=== PATIENT | female | born 1960 | race Caucasian/White ===

== ENCOUNTER 2019-09-19 14:24 | Emergency (ER) | payer MEDICAID ==
[~2019-09-19] VITALS: Ht 177.8 cm; Wt 88.4 kg
[2019-09-19] MEDS ORDERED: ONDANSETRON PF 4 MG/2 ML VIAL. IVP ONE (15:15)
[2019-09-19] MEDS ORDERED: KETOROLAC 15 MG/ML VIAL. IVP ONE (15:15)
[2019-09-19] MEDS ORDERED: FAMOTIDINE 20 MG/2 ML VIAL IVP ONE ×2 (15:15)
[2019-09-19] MEDS ORDERED: IV NORMAL SALINE 1,000ML 1,000 ML IV ONE (15:15)
[2019-09-19 15:25] LABS: BASO # 0.1 x10^3/uL (0.0-0.2); BASO % 1 % (0-3); EOS # 0.2 x10^3/uL (0.0-0.7); EOS % 2 % (0-3); HEMATOCRIT 46.8 % (36.0-47.0); HEMOGLOBIN 16.1 g/dL (12.0-15.5); LYMPH # 3.2 x10^3/uL (1.0-4.8); LYMPH % 41 % (24-48); MEAN CORPUSCULAR HEMOGLOBIN 32 pg (25-35); MEAN CORPUSCULAR HGB CONC 34 g/dL (31-37); MEAN CORPUSCULAR VOLUME 95 fL (79-100); MONO # 0.6 x10^3/uL (0.0-1.1); MONO % 7 % (0-9); NEUT # 3.8 x10^3uL (1.8-7.7); NEUT % 49 % (31-73); PLATELET COUNT 278 x10^3/uL (140-400); RED BLOOD COUNT 4.95 x10^6/uL (3.50-5.40); RED CELL DISTRIBUTION WIDTH 12.8 % (11.5-14.5); WHITE BLOOD COUNT 7.8 x10^3/uL (4.0-11.0)
[2019-09-19 15:28] LABS: CALCIUM 9.6 mg/dL (8.5-10.1); GFR 56.6; POTASSIUM 3.9 mmol/L (3.5-5.1)
[2019-09-19 15:36] LABS: ALBUMIN 4.2 g/dL (3.4-5.0); ALBUMIN/GLOBULIN RATIO 1.2 (1.0-1.7); TOTAL BILIRUBIN 0.7 mg/dL (0.2-1.0); TOTAL PROTEIN 7.8 g/dL (6.4-8.2)
[2019-09-19] MEDS ORDERED: CONTRAST GIVEN. MC PRN (17:00)
[2019-09-19] MEDS ORDERED: IOHEXOL 300 MG/ML 75 ML VIAL. IV ONE (17:00)
[2019-09-19 17:38] LABS: BILIRUBIN,URINE NEG (NEG); CLARITY,URINE HAZY; COLOR,URINE YELLOW; GLUCOSE,URINE NEG (NEG)
[2019-09-19 17:39] LABS: BACTERIA,URINE MOD /HPF (0-FEW); NITRITE,URINE NEG (NEG); SQUAMOUS EPITHELIAL CELL,UR MOD /LPF; UROBILINOGEN,URINE 0.2 mg/dL (0.2 mg/dL)
--- NOTE | 2019-09-19 17:46 | RAD ---
CT chest abdomen and pelvis with contrast: History: Epigastric pain Axial helical images of the chest abdomen and pelvis were obtained after the administration of 100 cc IV Isovue-370 contrast. Comparison: none CT OF THE CHEST WITH IV CONTRAST: There is no mediastinal lymphadenopathy or hematoma. Lymphadenopathy: no Thoracic aorta: normal Lungs and pleural margins: clear Impression: No acute findings. End Impression CT OF THE ABDOMEN AND PELVIS WITH IV CONTRAST: The appendix is normal. The gallbladder has been removed. Liver: Unremarkable Spleen: Unremarkable Pancreas: Unremarkable Adrenal Glands: Unremarkable Kidneys: Unremarkable Evaluation of stomach and bowel is limited without oral contrast. Lymphadenopathy: Multiple small lymph nodes in the izabella hepatis. No abnormally enlarged lymph nodes. Free fluid: no. Free air: no. The bladder is mostly collapsed. Impression: No acute findings. End impression PQRS Compliance Statement: One or more of the following individualized dose reduction techniques were utilized for this examination: 1. Automated exposure control 2. Adjustment of the mA and/or kV according to patient size 3. Use of iterative reconstruction technique Electronically signed by: Simone Vargas III, MD (09/19/2019 5:43 PM) [id number]
[2019-09-19] MEDS ORDERED: HYOS0.1265 SL (18:02)
[2019-09-19] MEDS ORDERED: FAMO-63 PO (18:02)
[2019-09-19] MEDS ORDERED: ONDA4TAB12 PO (18:02)
--- NOTE | 2019-09-19 18:02 | PHYS DOC ---
Past History Past Medical History: Bipolar Past Surgical History: Cholecystectomy, Additional Past Surgical Histo: carpal tunnel,left hand,colon surgery Smoking: Cigarettes Additional Smoking Information: 1/2 ppd Alcohol Use: None Drug Use: Marijuana Social History Narrative: recent marijuana "edibles" General Adult EDM: Chief Complaint: NAUSEA/VOMITING/DIARRHEA HPI: HPI: 59 year old female presents with 4 day history of upper abdominal pain with associated N/V/D. Denies known sick contacts. Reports associated subjective fever and chills and headache. Denies trauma. Denies known exposure to COVID- 19. Review of Systems: Review of Systems: Constitutional: Reports subjective fever and chills Eyes: Denies change in visual acuity, redness, or eye pain HENT: Denies nasal congestion or sore throat Respiratory: Denies cough or shortness of breath Cardiovascular: Denies chest pain or palpitations GI: Reports abdominal pain, nausea, vomiting, and diarrhea : Denies dysuria or hematuria Musculoskeletal: Denies back pain or joint pain Integument: Denies rash or skin lesions Neurologic: Reports headache; denies focal weakness or sensory changes Complete systems were reviewed and found to be within normal limits, except as documented in this note. Current Medications: Current Meds: Current Medications Medications (Trade) Dose Ordered Sig/Mahin Start Time Stop Time Status Last Admin Dose Admin Famotidine (Pepcid Vial) 20 mg 1X ONCE 09/19/19 15:15 09/19/19 15:16 DC 09/19/19 16:08 20 MG Info (Do NOT chart on this entry -- for MONITORING) 1 each PRN DAILY PRN 09/19/19 17:00 09/21/19 16:59 Iohexol (Omnipaque 300 Mg/ml) 75 ml 1X ONCE 09/19/19 17:00 09/19/19 17:01 DC Ketorolac Tromethamine (Toradol 15mg Vial) 15 mg 1X ONCE 09/19/19 15:15 09/19/19 15:16 DC 09/19/19 16:08 15 MG Ondansetron HCl (Zofran) 4 mg 1X ONCE 09/19/19 15:15 09/19/19 15:16 DC 09/19/19 16:08 4 MG Sodium Chloride 1,000 ml @ 1,000 mls/hr 1X ONCE 09/19/19 15:15 09/19/19 16:14 DC 09/19/19 16:07 1,000 MLS/HR Allergies: Allergies: Allergies Coded Allergies Type Severity Reaction Last Updated Verified No Known Drug Allergies 09/19/19 No Physical Exam: PE: Constitutional: Well developed, well nourished, no acute distress, non-toxic appearance HENT: Normocephalic, atraumatic Eyes: PERRL, EOMI, conjunctiva normal, no discharge Neck: Normal range of motion, no tenderness, supple, no meningeal signs Lungs & Thorax: Equal chest rise and fall, no respiratory distress Abdomen: Soft, epigastric tenderness, no guarding Skin: Warm, dry, no erythema, no rash Back: No tenderness, no CVA tenderness Extremities: No tenderness, ROM intact, no edema Neurologic: Alert and oriented X 3, motor and sensory functions intact, no focal deficits noted Psychologic: Affect normal, judgement normal Current Patient Data: Labs: Laboratory Tests Test 09/19/19 14:53 09/19/19 17:02 White Blood Count 7.8 x10^3/uL (4.0-11.0) Red Blood Count 4.95 x10^6/uL (3.50-5.40) Hemoglobin 16.1 g/dL (12.0-15.5) H Hematocrit 46.8 % (36.0-47.0) Mean Corpuscular Volume 95 fL (79-100) Mean Corpuscular Hemoglobin 32 pg (25-35) Mean Corpuscular Hemoglobin Concent 34 g/dL (31-37) Red Cell Distribution Width 12.8 % (11.5-14.5) Platelet Count 278 x10^3/uL (140-400) Neutrophils (%) (Auto) 49 % (31-73) Lymphocytes (%) (Auto) 41 % (24-48) Monocytes (%) (Auto) 7 % (0-9) Eosinophils (%) (Auto) 2 % (0-3) Basophils (%) (Auto) 1 % (0-3) Neutrophils # (Auto) 3.8 x10^3uL (1.8-7.7) Lymphocytes # (Auto) 3.2 x10^3/uL (1.0-4.8) Monocytes # (Auto) 0.6 x10^3/uL (0.0-1.1) Eosinophils # (Auto) 0.2 x10^3/uL (0.0-0.7) Basophils # (Auto) 0.1 x10^3/uL (0.0-0.2) Prothrombin Time 9.5 SEC (9.4-11.4) Prothrombin Time INR 0.9 (0.9-1.1) Activated Partial Thromboplast Time 26 SEC (23-33) D-Dimer (Sandy) 0.34 mg/L (0.00-0.50) Sodium Level 140 mmol/L (136-145) Potassium Level 3.9 mmol/L (3.5-5.1) Chloride Level 103 mmol/L (98-107) Carbon Dioxide Level 23 mmol/L (21-32) Anion Gap 14 (6-14) Blood Urea Nitrogen 15 mg/dL (7-20) Creatinine 1.0 mg/dL (0.6-1.0) Estimated GFR (Cockcroft-Gault) 56.6 BUN/Creatinine Ratio 15 (6-20) Glucose Level 97 mg/dL (70-99) Calcium Level 9.6 mg/dL (8.5-10.1) Magnesium Level 2.0 mg/dL (1.8-2.4) Total Bilirubin 0.7 mg/dL (0.2-1.0) Aspartate Amino Transferase (AST) 22 U/L (15-37) Alanine Aminotransferase (ALT) 43 U/L (14-59) Alkaline Phosphatase 101 U/L (46-116) Lactate Dehydrogenase 186 U/L (81-234) Total Protein 7.8 g/dL (6.4-8.2) Albumin 4.2 g/dL (3.4-5.0) Albumin/Globulin Ratio 1.2 (1.0-1.7) Lipase 209 U/L (73-393) Urine Collection Type Unknown Urine Color Yellow Urine Clarity Hazy Urine pH 5.0 Urine Specific Clarkson 1.025 Urine Protein Neg (NEG-TRACE) Urine Glucose (UA) Neg mg/dL (NEG) Urine Ketones (Stick) Trace mg/dL (NEG) Urine Blood Neg (NEG) Urine Nitrite Neg (NEG) Urine Bilirubin Neg (NEG) Urine Urobilinogen Dipstick 0.2 mg/dL (0.2 mg/dL) Urine Leukocyte Esterase Neg (NEG) Urine RBC 1-2 /HPF (0-2) Urine WBC 1-4 /HPF (0-4) Urine Squamous Epithelial Cells Mod /LPF Urine Bacteria Mod /HPF (0-FEW) Urine Mucus Marked /LPF Vital Signs: Vital Signs Date Time Temp Pulse Resp B/P (MAP) Pulse Ox O2 Delivery O2 Flow Rate FiO2 09/19/19 17:26 66 20 117/67 (84) 98 Room Air 09/19/19 14:28 98.2 EKG: EKG: [] Radiology/Procedures: Radiology/Procedures: PROCEDURE: CT CHEST ABD PELVIS W/CONTRAST CT chest abdomen and pelvis with contrast: History: Epigastric pain Axial helical images of the chest abdomen and pelvis were obtained after the administration of 100 cc IV Isovue-370 contrast. Comparison: none CT OF THE CHEST WITH IV CONTRAST: There is no mediastinal lymphadenopathy or hematoma. Lymphadenopathy: no Thoracic aorta: normal Lungs and pleural margins: clear Impression: No acute findings. End Impression CT OF THE ABDOMEN AND PELVIS WITH IV CONTRAST: The appendix is normal. The gallbladder has been removed. Liver: Unremarkable Spleen: Unremarkable Pancreas: Unremarkable Adrenal Glands: Unremarkable Kidneys: Unremarkable Evaluation of stomach and bowel is limited without oral contrast. Lymphadenopathy: Multiple small lymph nodes in the izabella hepatis. No abnormally enlarged lymph nodes. Free fluid: no. Free air: no. The bladder is mostly collapsed. Impression: No acute findings. End impression PQRS Compliance Statement: One or more of the following individualized dose reduction techniques were utilized for this examination: 1. Automated exposure control 2. Adjustment of the mA and/or kV according to patient size 3. Use of iterative reconstruction technique Electronically signed by: Simone Vargas III, MD (09/19/2019 5:43 PM) [id number] Course & Med Decision Making: Course & Med Decision Making Pertinent Labs and Imaging studies reviewed. (See chart for details) Patient presents with 4 day history of epigastric abdominal discomfort with associated N/V/D, subjective fever/chills, and headache. Denies known sick contacts. Denies known exposure to COVID-19. Cannot fully exclude COVID-19. COVID precautions utilized and testing pending. Labs obtained and posted to chart. CT chest/abd/pelvis without acute process. Patient stable for discharge home with outpatient follow-up with PCP. Discussed findings and plan with patient, who acknowledges understanding and agreement. COVID-19 CRITERIA: The patient was evaluated during the global COVID-19 pandemic, and that diagnosis was suspected/considered upon their initial present ation. Their evaluation, treatment and testing was consistent with current guidelines for patients who present with complaints or symptoms that may be related to COVID-19. Jyotsna Disclaimer: Dragon Disclaimer: This electronic medical record was generated, in whole or in part, using a voice recognition dictation system. Departure Departure: Impression: Primary Impression: Epigastric abdominal pain Additional Impressions: Headache Qualified Codes: R51 - Headache Nausea vomiting and diarrhea Suspected 2019 novel coronavirus infection Disposition: HOME/RESIDENCE PRIOR TO ADM Condition: STABLE Referrals: [facility] (PCP) CRISTIAN KINGSTON MD Patient Instructions: Abdominal Pain (Nonspecific), Clear Liquid Diet, [id number], Diarrhea, [id number], Diet for Diarrhea, Adult, Headache, FAQs, Nausea and Vomiting, [id number] Additional Instructions: You have been tested for or diagnosed with COVID-19. It is an infection caused by a new type of coronavirus. COVID-19 will cause cold-like or mild flu symptoms in most. It can cause more severe symptoms like problems breathing in some. There is no treatment for COVID-19. The body will clear the infection over time. Self-care will help to ease discomfort. Steps to Take: Self-Care Rest as needed. Healthy habits may help you feel better. Steps include: Choose healthy foods including fruits and vegetables. Drink water throughout the day. Get plenty of sleep each night. If you smoke, try to quit. It may ease breathing. Avoid alcohol. Keep Others Healthy The virus can spread to others. Droplets are released every time you sneeze or cough. The droplets can get into the mouth, nose, or eyes of people near you and lead to infection. To lower the chances of spreading COVID-19 to others: Stay at home until your doctor has said it is safe to leave. If you tested positive this will mean staying isolated until both of the following are true: At least 7 days have passed since the start of illness. You are free of fever for at least 72 hours without the use of medicine. During this time: - Avoid public areas, events, or transportation. Do not return to work or school until your doctor has said it is safe to do so. - Call ahead if you need to go to a medical center. Let them know you may have COVID-19. It will help them guide you where to go. They may also ask you to wear a facemask when you come to the office. - If you call for emergency medical services, let them know you may have COVID- 19. While at home: - Try to avoid close contact with others. Stay about 6 feet away. - If possible, spend most of your time in a separate room from others. - Use a face mask if you will be in close contact with others such as sharing a room or vehicle. - Have someone wipe down common surfaces in the home. Use household inspecting and testing lead hand every day on areas like doorknobs, counters, or sinks. - Cough or sneeze into a tissue. Throw the tissue away right after use. If a tissue is not available, cough or sneeze into your elbow. - Wash your hands often. Wash them after sneezing or coughing. Use soap and water and wash for at least 20 seconds. Alcohol based hand spot cleaner can be used if soap and water is not available. - Do not prepare food for others. Avoid sharing personal items like forks, spoons, or toothbrushes. - Avoid close contact with pets while you are sick. There is no evidence of the virus passing to pets. This is a safety step until more is known about this virus. Isolation can be frustrating. Social interaction can help. Keep in touch with friends and family through phone and tech options. You can still interact with others in your home, just keep a safe distance of about 6 feet. Follow-up: Your doctors office will check in with you to see if there are any changes in your health. You may be asked to keep track of symptoms to share with them. They will also let you know when you are clear to be in public again. Problems to Look Out For: Contact your doctor if your recovery is not going as you expect. Get emergency care if you have problems such as: - Trouble breathing - Nonstop chest pain or pressure - Changes in awareness, confusion, or problems waking - Lips or face have bluish color - Worsening of symptoms If you think you have an emergency, call for emergency medical services right away. As taken from [facility] Ondansetron (ONDANSETRON ODT) 4 Mg Tab.rapdis 1 TAB PO PRN Q6-8HRS PRN for NAUSEA, #16 TAB Prov: ADAMA GARCIA DO 09/19/19 Hyoscyamine Sulfate (LEVSIN-SL) 0.125 Mg Tab.subl 1 TAB SL Q4-6HRS PRN for pain, #14 TAB 0 Refills Prov: ADAMA GARCIA DO 09/19/19 Famotidine (PEPCID) 20 Mg Tablet 1 TAB PO BID for Gastritis for 5 Days, #10 TAB Prov: ADAMA GARCIA DO 09/19/19 Justification of Admission: Justification of Admission: Justification of Admission Dx: N/A COVID-19 Assessment COVID-19 Patient Risks: Age 65 or older: No Sign of co-morbidity: Yes Exp to person + for COVID: No Exp to PUI: No Travel from affected area: No Lower respiratory symptoms: No Fever: Yes (subjective) PPE Use: Full PPE with N95 mask or PAPR: Yes ADAMA GARCIA DO Sep 19, 2019 18:02
[2019-09-19 18:30] VITALS: BP 116/78
--- NOTE | 2019-09-21 13:26 | NUR ---
IP: notified patient of COVID result.
== END 2019-09-19 18:45 | disposition home or self-care (01) ==
LOC: ER 14:24
DX: R10.13 Epigastric pain (principal); R51 Headache; Z20.818 Contact with and (suspected) exposure to other bacterial communicable diseases; R11.2 Nausea with vomiting, unspecified; R19.7 Diarrhea, unspecified; F31.9 Bipolar disorder, unspecified; Z90.49 Acquired absence of other specified parts of digestive tract; Z98.890 Other specified postprocedural states; Z79.899 Other long term (current) drug therapy
CPT/HCPCS: 36415; 71260; 74177; 80053; 81001; 82728; 83615; 83690; 83735; 85025; 85379; 85610; 85730; 87086; 96361; 96374; 96375; 99285; J1885; J2405; J3490; J7030; U0003